=== PATIENT | male | born 1975 ===

== ENCOUNTER 2021-07-30 05:48 | Day surgery (SDC) | payer OTHER ==
[~2021-07-30] VITALS: Ht 172.7 cm; Wt 81.6 kg
== END 2021-07-30 14:00 | disposition left against medical advice (07) ==
LOC: SURH 05:48 → O/R 05:48 → CIR.AMB 05:48 → SURH 07:00 → O/R 12:15 → SURH 13:59 → EDSTATUS 14:00 → SURH 14:00 → O/R 14:00 → CIR.AMB 14:00
PROVIDERS: ATTEND Surgery
DX: D12.8 Benign neoplasm of rectum (principal); K62.82 Dysplasia of anus; Z20.822 Contact with and (suspected) exposure to COVID-19